=== PATIENT | female | born 1990 | race African-American/Black ===

== ENCOUNTER 2017-03-30 21:23 | Emergency (ER) | payer SELFPAY ==
[~2017-03-30] VITALS: Ht 160 cm; Wt 49.1 kg
[~2017-03-30 21:23] MED LIST: HYDROCODON-ACE1 EAC7 PO; KEFLEX500 MG PO; NAPROSYN500 MG PO
[2017-03-30 21:57] LABS: HEMATOCRIT 37.5 % (36.0-46.0); MCH 33.4 PG (29.0-34.0); MCHC 34.7 G/DL (30.0-36.0); MCV 96.4 FL (83-99); MEAN PLAT.VOLUME 10.3 uM^3 (9.5-12.4); PLATELET COUNT 205 K/uL (156-360); RBC DIS.WIDTH-CV 12.4 % (11.8-14.6); RBC DIS.WIDTH-SD 43.7 % (39-53); RED BLOOD COUNT 3.89 M/uL (3.80-5.20); WHITE BLOOD COUNT 24.8 K/uL (4.1-10.2)
[2017-03-30 22:08] LABS: CHLORIDE 101 mEq/L (99-109); POTASSIUM 3.4 mEq/L (3.7-5.4); SODIUM 137 mEq/L (136-147)
[2017-03-30 22:10] LABS: GLUCOSE 113 mg/dL (70-99)
[2017-03-30 22:12] LABS: ANION GAP 13 MEQ/L (2-14); TOTAL BILIRUBIN 1.4 mg/dL (0.0-1.0)
[2017-03-30 22:14] LABS: ALKALINE PHOSPHATASE 53 IU/L (3-129); GFR ESTIMATE (CALCULATED) > 59 mL/min/
[2017-03-30 22:15] LABS: UREA NITROGEN (BUN) 7 mg/dL (9-23)
[2017-03-30 22:23] LABS: QUANTITATIVE HCG < 4.0 MIU/ML
[2017-03-30 22:48] LABS: LIPASE 5 U/L (1.0-51.0)
[2017-03-30 23:45] LABS: ADD MIUA? YES; BILIRUBIN NEGATIVE; BLOOD SMALL; COLOR AMBER ((YELLOW)); GLUCOSE (STRIP) NEGATIVE; KETONES NEGATIVE; LEUKOCYTES MODERATE; NITRITE POSITIVE; PROTEIN (STRIP) NEGATIVE; SPECIFIC GRAVITY 1.008 (1.000-1.030)
[2017-03-31 00:01] LABS: BACTERIA RARE /HPF; EPITHELIAL CELLS RARE /HPF; MUCUS NONE SEEN /LPF; RED BLOOD CELLS 0-5 /HPF (0-5); UCUL ADDED? YES; WHITE BLOOD CELLS 20-30 /HPF (0-5)
[2017-03-31 00:02] LABS: CREATINE KINASE 78 IU/L (1-294)
[2017-03-31] MEDS ORDERED: PYRIDIUM100 MG PO (03:12)
[2017-03-31] MEDS ORDERED: CEFPODOXIME PR100 MG PO (03:12)
[2017-03-31 03:49] VITALS: BP 122/83
== END 2017-03-31 03:51 | disposition home or self-care (01) ==
LOC: EME 21:23
PROVIDERS: Emergency Medicine
DX: N30.01 Acute cystitis with hematuria (principal); R11.2 Nausea with vomiting, unspecified; R19.7 Diarrhea, unspecified; R05 Cough; F17.200 Nicotine dependence, unspecified, uncomplicated; Z87.440 Personal history of urinary (tract) infections
CPT/HCPCS: 71010; 74177; 80053; 81003; 82550; 83605; 83690; 84702; 85027; 87040; 87086; 87502; 99281; 99285; J0696; J2270; J2405; J7030

== ENCOUNTER 2017-04-17 13:35 | Emergency (ER) | payer SELFPAY ==
[~2017-04-17] VITALS: Ht 157.5 cm; Wt 48.8 kg
[~2017-04-17 13:35] MED LIST changes: +CEFPODOXIME PR100 MG PO; +PYRIDIUM100 MG PO
[2017-04-17 16:50] VITALS: BP 103/68
== END 2017-04-17 16:51 | disposition home or self-care (01) ==
LOC: EME 13:35
PROC: 0HDRXZZ Extraction of Toe Nail, External Approach (ICD-10-PCS; principal; 2017-04-17)
DX: S91.201A Unspecified open wound of right great toe with damage to nail, initial encounter (principal); W22.8XXA Striking against or struck by other objects, initial encounter
CPT/HCPCS: 99281; 99283; S0020